=== PATIENT | female | born 1975 | race African-American/Black ===

== ENCOUNTER 2019-10-27 08:37 | Inpatient (IN) ==
[2019-10-27] MEDS ORDERED: DILTIAZEM 50 MG/10 ML VIAL IV STA (09:16)
[2019-10-27] MEDS ORDERED: dilTIAZem Drip 125 MG/125 ML PREMIX IV SCH (09:30)
[2019-10-27 09:59] LABS: Basophils # 0.1 10*3/uL (0.0-0.2); Basophils % 0.3 % (0.0-0.8); Hematocrit 39.7 VOL% (35.7-47.0); Hemoglobin 12.9 GM/DL (12.0-16.0); Immature Granulocytes % 0.5 %; Immature Granulocytes Absolute 0.07 #; Lymphocytes # 1.2 10*3/uL (1.4-4.0); Lymphocytes % 7.6 % (21.3-54.2); Mean Corpuscular HGB Conc 32.5 GM/DL (32-36); Mean Corpuscular Volume 85.2 FL (87-102); Mean Platelet Volume 10.7 FL (9.6-12.0); Monocytes % 6.3 % (1.7-12.7); Neutrophils % 85.3 % (38.7-73.9); Platelet Count 280 T/CUMM (130-400); Red Blood Count 4.66 MC/CUMM (3.8-5.5); White Blood Count 15.5 T/CUMM (4-12)
[2019-10-27 10:16] LABS: Hypochromasia 1+; Platelet Estimate Adequate
[2019-10-27 10:29] LABS: Albumin 2.9 G/DL (3.4-5.0); Bilirubin,Total 2.7 MG/DL (0.2-1.0); Calcium 8.5 MG/DL (8.5-10.1); Ferritin 271.4 ng/ml (8-252); Osmolality,Calculated 265.2 MOS/KG (273-304); Thyroid Stimulating Hormone 1.09 uIU/ml (0.358-3.74)
[2019-10-27] MEDS ORDERED: POTASSIUM CHLORIDE 20 MEQ TABLET PO STA (11:05)
[2019-10-27 11:46] LABS: Apearance,Urine CLOUDY (Clear); Bilirubin,Urine Negative (Negative); Blood, Urine Small mg/dL (Negative); Glucose,Urine (UA) Negative (Negative); Ketones,Urine Negative (Negative); Mucus,Urine Occasional /LPF (Occasional); Nitrite,Urine Negative (Negative); Protein,Urine 100 MG/DL; RBC,Urine 1 /HPF (0-4); Squamous Epithelial Cell,Urine Many /HPF (0-10); Urine Color Amber (Yellow); Urine Specific Gravity 1.019 (1.001-1.035); WBC,Urine 1 /HPF (0-6)
[2019-10-27] MEDS ORDERED: METOPROLOL TARTRATE 5 MG/5 ML VIAL IV STA (11:51)
[2019-10-27] MEDS ORDERED: METOPROLOL TARTRATE 5 MG/5 ML VIAL IV ONE ×2 (11:53→15:37)
[2019-10-27] MEDS ORDERED: ACETAMINOPHEN 500 MG TABLET ONE (12:02)
[2019-10-27] MEDS ORDERED: cefTRIAXone 1,000 MG in SODIUM CHLORIDE 0.9% 100 ML IV STA (12:08)
[2019-10-27] MEDS ORDERED: AZITHROMYCIN 250 MG TABLET PO STA (12:08)
[2019-10-27] MEDS ORDERED: ACETAMINOPHEN 500 MG TABLET PO STA (12:08)
[2019-10-27] MEDS ORDERED: LACTULOSE 20 GM/30 ML UDCUP PO PRN (12:23)
[2019-10-27] MEDS ORDERED: guaiFENesin/DM ER 600-30 MG TABLET PO PRN (12:23)
[2019-10-27] MEDS ORDERED: MORPHINE 4 MG/1 ML VIAL IV PRN (12:23)
[2019-10-27] MEDS ORDERED: ONDANSETRON 4 MG/2 ML VIAL IV PRN (12:23)
[2019-10-27] MEDS ORDERED: GLUCAGON 1 MG VIAL IM PRN (12:23)
[2019-10-27] MEDS ORDERED: DEXTROSE 10% 250 ML BAG IV PRN (12:23)
[2019-10-27] MEDS ORDERED: DOCUSATE SODIUM 100 MG CAPSULE PO PRN (12:23)
[2019-10-27] MEDS ORDERED: POTASSIUM CHLORIDE 20 MEQ TABLET PO ONE (15:00)
[2019-10-27] MEDS ORDERED: HYDROXYCHLOROQUINE 200 MG TABLET PO ONE (15:00)
[2019-10-27] MEDS: ENOXAPARIN 40 MG/0.4 ML SYRINGE SUBCUT SCH (15:10)
[2019-10-27] MEDS ORDERED: METOPROLOL TARTRATE 5 MG/5 ML VIAL IV PRN (15:37)
[2019-10-27] MEDS: ACETAMINOPHEN 325 MG TABLET PO PRN (18:19)
[2019-10-27] MEDS ORDERED: METOPROLOL TARTRATE 25 MG TABLET PO SCH (21:00)
[2019-10-28] MEDS: ACETAMINOPHEN 325 MG TABLET PO PRN ×3 (04:09→20:47)
[2019-10-28 05:13] LABS: Basophils # 0.1 10*3/uL (0.0-0.2); Basophils % 0.3 % (0.0-0.8); Eosinophils % 0.1 % (0.00-10.9); Hematocrit 38.3 VOL% (35.7-47.0); Hemoglobin 12.5 GM/DL (12.0-16.0); Immature Granulocytes % 0.6 %; Immature Granulocytes Absolute 0.09 #; Lymphocytes # 1.1 10*3/uL (1.4-4.0); Lymphocytes % 6.6 % (21.3-54.2); Mean Corpuscular HGB Conc 32.6 GM/DL (32-36); Mean Platelet Volume 11.6 FL (9.6-12.0); Monocytes % 5.5 % (1.7-12.7); Neutrophils % 86.9 % (38.7-73.9); Platelet Count 233 T/CUMM (130-400); Red Blood Count 4.56 MC/CUMM (3.8-5.5); Red Cell Distribution Width 16.4 % (9.3-17.3); White Blood Count 16.3 T/CUMM (4-12)
[2019-10-28 05:41] LABS: Albumin 2.5 G/DL (3.4-5.0); Bilirubin,Total 1.1 MG/DL (0.2-1.0); Calcium 8.4 MG/DL (8.5-10.1); Osmolality,Calculated 261.5 MOS/KG (273-304); Total Protein 7.5 G/DL (6.4-8.3)
[2019-10-28] MEDS ORDERED: HYDROXYCHLOROQUINE 200 MG TABLET PO ONE (09:00)
[2019-10-28] MEDS ORDERED: AZITHROMYCIN 250 MG TABLET PO SCH (09:00)
[2019-10-28] MEDS: DOXYCYCLINE HYCLATE 100 MG CAPSULE PO SCH ×2 (09:20→16:41)
[2019-10-28] MEDS: cefTRIAXone 1,000 MG in SYRINGE 1 EACH IV SCH (09:21)
[2019-10-28] MEDS: DILTIAZEM CD 120 MG CAPSULE PO SCH ×2 (09:21→20:46)
[2019-10-28] MEDS: METOPROLOL TARTRATE 25 MG TABLET PO SCH ×3 (09:21→20:46)
[2019-10-28] MEDS: ZINC SULFATE 220 MG CAPSULE PO SCH (09:21)
[2019-10-28] MEDS: ENOXAPARIN 40 MG/0.4 ML SYRINGE SUBCUT SCH (15:34)
[2019-10-28] MEDS: HYDROXYCHLOROQUINE 200 MG TABLET PO SCH (20:47)
[2019-10-29] MEDS: ACETAMINOPHEN 325 MG TABLET PO PRN (04:16)
[2019-10-29 06:19] LABS: Basophils % 0.1 % (0.0-0.8); Eosinophils % 0.3 % (0.00-10.9); Hematocrit 38.3 VOL% (35.7-47.0); Hemoglobin 12.2 GM/DL (12.0-16.0); Immature Granulocytes % 0.7 %; Immature Granulocytes Absolute 0.09 #; Lymphocytes # 0.8 10*3/uL (1.4-4.0); Mean Corpuscular HGB Conc 31.9 GM/DL (32-36); Mean Corpuscular Volume 84.7 FL (87-102); Mean Platelet Volume 11.2 FL (9.6-12.0); Monocytes % 4.4 % (1.7-12.7); Neutrophils % 88.5 % (38.7-73.9); Platelet Count 278 T/CUMM (130-400); Red Blood Count 4.52 MC/CUMM (3.8-5.5); Red Cell Distribution Width 16.4 % (9.3-17.3); White Blood Count 13.8 T/CUMM (4-12)
[2019-10-29 08:20] LABS: Albumin 2.3 G/DL (3.4-5.0); Bilirubin,Total 0.8 MG/DL (0.2-1.0); Calcium 8.3 MG/DL (8.5-10.1); Total Protein 7.5 G/DL (6.4-8.3)
[2019-10-29] MEDS: HYDROXYCHLOROQUINE 200 MG TABLET PO SCH ×2 (09:19→20:02)
[2019-10-29] MEDS: DOXYCYCLINE HYCLATE 100 MG CAPSULE PO SCH ×3 (09:20→16:51)
[2019-10-29] MEDS: DILTIAZEM CD 120 MG CAPSULE PO SCH ×2 (09:20→20:02)
[2019-10-29] MEDS: METOPROLOL TARTRATE 25 MG TABLET PO SCH ×2 (09:20→20:02)
[2019-10-29] MEDS: cefTRIAXone 1,000 MG in SYRINGE 1 EACH IV SCH (09:20)
[2019-10-29] MEDS: BUTALBITAL/ACETAMIN/CAFFEINE 50-325-40 MG TABLET PO PRN ×2 (10:14→17:04)
[2019-10-29] MEDS: ENOXAPARIN 40 MG/0.4 ML SYRINGE SUBCUT SCH (15:54)
[2019-10-30 06:41] LABS: Basophils % 0.3 % (0.0-0.8); Eosinophils # 0.1 10*3/uL (0.0-0.87); Hemoglobin 11.9 GM/DL (12.0-16.0); Immature Granulocytes % 0.3 %; Immature Granulocytes Absolute 0.03 #; Lymphocytes % 10.3 % (21.3-54.2); Mean Corpuscular HGB Conc 32.2 GM/DL (32-36); Mean Corpuscular Volume 84.3 FL (87-102); Mean Platelet Volume 11.2 FL (9.6-12.0); Monocytes % 5.5 % (1.7-12.7); Neutrophils % 82.6 % (38.7-73.9); Platelet Count 301 T/CUMM (130-400); Red Blood Count 4.39 MC/CUMM (3.8-5.5); Red Cell Distribution Width 16.5 % (9.3-17.3); White Blood Count 9.3 T/CUMM (4-12)
[2019-10-30 07:01] LABS: Albumin 2.2 G/DL (3.4-5.0); Bilirubin,Total 1.3 MG/DL (0.2-1.0); Calcium 8.3 MG/DL (8.5-10.1); Total Protein 7.3 G/DL (6.4-8.3)
[2019-10-30] MEDS ORDERED: POTASSIUM CHLORIDE 20 MEQ TABLET PO ONE (07:14)
[2019-10-30] MEDS: DILTIAZEM CD 120 MG CAPSULE PO SCH (09:52)
[2019-10-30] MEDS: DOXYCYCLINE HYCLATE 100 MG CAPSULE PO SCH (09:52)
[2019-10-30] MEDS: HYDROXYCHLOROQUINE 200 MG TABLET PO SCH (09:53)
[2019-10-30] MEDS: cefTRIAXone 1,000 MG in SYRINGE 1 EACH IV SCH (09:53)
[2019-10-30] MEDS: ZINC SULFATE 220 MG CAPSULE PO SCH (09:54)
[2019-10-30] MEDS: METOPROLOL TARTRATE 25 MG TABLET PO SCH (10:40)
[2019-10-30 15:06] VITALS: BP 122/71
== END 2019-10-30 14:45 | disposition home or self-care (01) | DRG 194 ==
LOC: N.ED 08:37 → N.EDINP 12:23 → N.2E 13:14
PROVIDERS: ADMIT Internal Medicine; ATTEND Internal Medicine